=== PATIENT | female | born 1965 | race Two or more races ===

== ENCOUNTER 2023-07-08 17:20 | Inpatient (IN) | payer MEDICAID ==
[~2023-07-08] VITALS: Ht 165.1 cm; Wt 72.8 kg
[2023-07-08 19:29] LABS: BASOPHILS % (AUTO) 0.8 % (0.0-2.0); EOSINOPHILS % (AUTO) 1.3 % (1.0-6.0); HEMOGLOBIN 13.5 g/dL (12.0-16.0); LYMPHOCYTES # (AUTO) 2.3 K/uL (1.0-4.8); LYMPHOCYTES % (AUTO) 27.7 % (22.0-44.0); MEAN CORPUSCULAR HEMOGLOBIN 24.6 pg (26.0-34.0); MEAN CORPUSCULAR HGB CONC 32.2 G/dL (31.0-37.0); MEAN CORPUSCULAR VOLUME 77 fL (80-100); MONOCYTES # (AUTO) 0.5 K/uL (0.1-1.0); NEUTROPHILS # (AUTO) 5.2 K/uL (1.8-7.7); NEUTROPHILS % (AUTO) 64.2 % (40.0-70.0); PLATELET COUNT (AUTO) 207 K/uL (150-450); RED BLOOD CELL COUNT(AUTO) 5.48 MIL/uL (4.00-5.20); RED CELL DISTRIBUTION WIDTH 15.4 % (11.5-14.5); WHITE BLOOD COUNT (AUTO) 8.2 K/uL (4.5-11.0)
[2023-07-08 19:48] LABS: ANION GAP 10 mmol/L (8-16); CALCIUM, TOTAL 9.4 mg/dL (8.8-10.5); CARBON DIOXIDE 27 mmol/L (22-29); CHLORIDE 105 mmol/L (98-107); CREATININE 0.61 mg/dL (0.60-1.30); GLOMERULAR FILTR. RATE CALC > 60 mL/min (>60); GLUCOSE,RANDOM 93 mg/dL (70-110); POTASSIUM 3.7 mmol/L (3.5-5.1); SODIUM SERUM 142 mmol/L (136-145); UREA NITROGEN, BLOOD 11 mg/dL (7-18)
[2023-07-08 19:52] LABS: ALANINE AMINOTRANSFERASE 27 U/L (12-78); ALBUMIN 3.7 g/dL (3.4-5.0); ALKALINE PHOSPHATASE 121 U/L (46-116); ASPARTATE AMINOTRANSFERASE 16 U/L (15-37); BILIRUBIN,TOTAL 0.4 mg/dL (0.1-1.0); TOTAL PROTEIN, SERUM 7.2 g/dL (6.4-8.2)
[2023-07-08 19:54] LABS: ALCOHOL, BLOOD (SERUM) < 3 mg/dL (0-10)
[2023-07-08] MEDS ORDERED: MAG HYDROX/ALUMINUM HYD/SIMETH ES 30 ML SUSPENSION UDCUP PO PRN (21:00)
[2023-07-08] MEDS ORDERED: HydrOXYzine PAMOATE 50 MG CAPSULE PO PRN (21:00)
[2023-07-08] MEDS ORDERED: MAGNESIUM HYDROXIDE SUSPENSION 30 ML UDCUP PO PRN (21:00)
[2023-07-08] MEDS ORDERED: GuaiFENesin/D-METHORPHAN [SUGAR-FREE] 200-20MG/10 ML SYRUP UDCUP PO PRN (21:00)
[2023-07-08] MEDS ORDERED: ZOLPIDEM TARTRATE 10 MG TABLET PO PRN (21:00)
[2023-07-08] MEDS ORDERED: LOPERAMIDE HCL 2 MG CAPSULE PO PRN (21:00)
[2023-07-08] MEDS ORDERED: TUBERCULIN, PURIFIED PROTEIN DERIVATIVE 5 TU/0.1 ML SYRINGE ID ONE (21:00)
[2023-07-08] MEDS: MELATONIN 5 MG TABLET PO SCH (21:14)
[2023-07-08] MEDS: OLANZapine 5 MG RAPDIS TABLET PO SCH (21:15)
[2023-07-09 07:41] LABS: HEMOGLOBIN A1C 6.1 % (3.8-5.6)
[2023-07-09 07:58] LABS: CHOL/HDL RATIO 4.5 (3.9-5.7); THYROID STIMULATING HORMONE 1.43 uIU/mL (0.36-3.74)
[2023-07-09] MEDS: OMEGA-3/DHA/EPA/FISH OIL 1,000 MG CAPSULE PO SCH (09:16)
[2023-07-09] MEDS: FLUoxetine HCL 20 MG CAPSULE PO SCH (09:16)
[2023-07-09] MEDS: THIAMINE 100 MG TABLET PO SCH (09:17)
[2023-07-09] MEDS: FOLIC ACID 1 MG TABLET PO SCH (09:17)
[2023-07-09] MEDS: MULTIVITAMINS WITH MINERALS, THERAPEUTIC TABLET PO SCH (09:17)
[2023-07-09] MEDS: ACETAMINOPHEN 325 MG TABLET PO PRN (17:16)
[2023-07-09 18:19] LABS: COVID AG,FIA SOURCE NASAL SWAB
[2023-07-09 19:07] LABS: SARS-COV2 (COVID) ANTIGEN,FIA Negative (Negative)
[2023-07-09 21:48] VITALS: BP 107/62; PULSE 86; RESP 16; TEMP 98.1; O2SAT 98
[2023-07-10] MEDS: PROMETHAZINE HCL 25 MG TABLET PO PRN (06:09)
[2023-07-10] MEDS: OLANZapine 5 MG RAPDIS TABLET PO PRN (09:47)
[2023-07-10] MEDS: LORazepam 2 MG TABLET PO PRN (09:47)
[2023-07-10 13:49] VITALS: BP 117/74; PULSE 87; RESP 17; TEMP 97.7; O2SAT 98
[2023-07-10] MEDS ORDERED: GLUCAGON,HUMAN RECOMBINANT 1 MG VIAL IM PRN (16:15)
[2023-07-10] MEDS: OLANZapine 10 MG RAPDIS TABLET PO SCH (19:37)
[2023-07-10 20:17] VITALS: BP 122/68; PULSE 84; RESP 18; TEMP 98.2; O2SAT 99
[2023-07-11 01:51] VITALS: BP 126/64; PULSE 67; RESP 18; O2SAT 98
[2023-07-11 06:16] LABS: GLUCOMETER DEV NAME(LOC) BV3S.; GLUCOSE,POINT OF CARE 108 MG/DL (70-110)
[2023-07-11 08:18] VITALS: BP 126/70; PULSE 78; RESP 16; TEMP 98.2; O2SAT 97
[2023-07-11] MEDS ORDERED: OLAN10TA26 PO (17:08)
[2023-07-11] MEDS ORDERED: OMEG-135 PO (17:08)
[2023-07-11] MEDS ORDERED: MELA5TAB40 PO (17:08)
[2023-07-11] MEDS ORDERED: FLUO20CA36 PO (17:08)
[2023-07-11] MEDS: INSULIN LISPRO 100 UNITS/ML SQ PRN (20:13)
[2023-07-11 20:50] LABS: GLUCOMETER DEV NAME(LOC) BV3S.; GLUCOSE,POINT OF CARE 148 MG/DL (70-110)
[2023-07-11 23:04] VITALS: BP 123/74; PULSE 86; RESP 18; TEMP 97.5
[2023-07-12 01:08] VITALS: BP 119/76; PULSE 68; RESP 18; TEMP 97.7; O2SAT 97
[2023-07-12 06:21] LABS: GLUCOMETER DEV NAME(LOC) BV3S.; GLUCOSE,POINT OF CARE 109 MG/DL (70-110)
[2023-07-12 08:14] VITALS: BP 135/84; PULSE 66; RESP 16; TEMP 97.6; O2SAT 96
== END 2023-07-12 11:20 | disposition home or self-care (01) | DRG 750 ==
LOC: EMS 17:20 → B3A 07-09 19:21
PROVIDERS: ADMIT Psychiatry & Neurology Psychiatry; ATTEND Psychiatry & Neurology Psychiatry
PROC: GZHZZZZ Group Psychotherapy (ICD-10-PCS; principal; 2023-07-09)
PROC: GZ56ZZZ Individual Psychotherapy, Supportive (ICD-10-PCS; 2023-07-09)
DX: F25.1 Schizoaffective disorder, depressive type (principal); R73.03 Prediabetes; Z20.822 Contact with and (suspected) exposure to COVID-19; Z55.9 Problems related to education and literacy, unspecified; Z59.9 Problem related to housing and economic circumstances, unspecified; Z63.9 Problem related to primary support group, unspecified; Z65.3 Problems related to other legal circumstances
CPT/HCPCS: 80053; 80061; 82962; 83036; 84439; 84443; 85025; 86592; 99285; G0480; Q9967